=== PATIENT | female | born 1975 | race Caucasian/White ===

== ENCOUNTER 2017-04-23 21:20 | Emergency (ER) | payer BC ==
[2017-04-23 21:26] VITALS: BP 108/61
--- NOTE | 2017-04-23 22:25 | UC ---
Complaint Female HPI - HPI Summary HPI Summary: complaint of burning with urination increase in frequency and urgency denies abdominal pain, flank pain, back pain denies fever hasn't taken any medication for symptoms - History Of Current Complaint Chief Complaint: UCGU Stated Complaint: UTI TYPE SYMPTOMS Time Seen by Provider: 04/23/17 22:18 Hx Obtained From: Patient Hx Last Menstrual Period: 04/12/17 - Allergies/Home Medications Allergies/Adverse Reactions: Allergies Allergy/AdvReac Type Severity Reaction Status Date / Time Shellfish Allergy Allergy Severe Tingling, Verified 07/03/16 22:00 BURNING PMH/Surg Hx/FS Hx/Imm Hx Previously Healthy: Yes - Surgical History Surgical History: Yes Surgery Procedure, Year, and Place: , IVF 06/2016 - Family History Known Family History: Positive: Diabetes - Social History Occupation: Employed Full-time Lives: With Family Alcohol Use: None Substance Use Type: None Smoking Status (MU): Never Smoked Tobacco Review of Systems Constitutional: Negative Skin: Negative Eyes: Negative ENT: Negative Respiratory: Negative Cardiovascular: Negative Gastrointestinal: Negative Genitourinary: Dysuria Motor: Negative Neurovascular: Negative Musculoskeletal: Negative Neurological: Negative Psychological: Negative All Other Systems Reviewed And Are Negative: Yes Physical Exam Triage Information Reviewed: Yes Appearance: No Pain Distress, Well-Nourished Vital Signs: Initial Vital Signs Temp 98.4 F 04/23/17 21:21 Pulse 89 04/23/17 21:21 Resp 18 04/23/17 21:21 BP 108/61 04/23/17 21:21 Pulse Ox 100 04/23/17 21:21 Vital Signs Reviewed: Yes Eyes: Positive: Conjunctiva Clear ENT: Positive: Pharynx normal, TMs normal Neck: Positive: No Lymphadenopathy Respiratory: Positive: Lungs clear, Normal breath sounds, No respiratory distress, No accessory muscle use Cardiovascular: Positive: RRR, No Murmur, Pulses Normal Abdomen Description: Positive: Nontender, No Organomegaly, Soft. Negative: CVA Tenderness (R), CVA Tenderness (L), Distended, Guarding Bowel Sounds: Positive: Present Musculoskeletal: Positive: No Edema Neurological: Positive: Alert Psychological Exam: Normal Skin Exam: Normal Complaint Female Dx - Differential Dx/Diagnosis Differential Diagnosis/HQI/PQRI: Urinary Tract Infection Provider Diagnoses: UTI Discharge - Discharge Plan Condition: Stable Disposition: HOME Prescriptions: Nitrofurantoin Monohyd Macro [Macrobid] 100 mg PO BID #10 cap Phenazopyridine TAB* [Pyridium 100 mg TAB*] 100 mg PO TID #6 tab Patient Education Materials: Urinary Tract Infection in Women (ED) Referrals: Shannan Vegas MD [Primary Care Provider] - Additional Instructions: Please start antibiotic and pyridium as directed Increase fluids and rest Take acetaminophen or ibuprofen for fever or pain Please review your discharge instructions. If your symptoms do not improve please call your primary care provider or return to urgent care.
[2017-04-23] MEDS ORDERED: Nitrofurantoin Macrocrystals* 50 MG CAP PO ONE (22:27)
[2017-04-23] MEDS ORDERED: Phenazopyridine TAB* 100 MG PO ONE (22:27)
== END 2017-04-23 23:01 | disposition home or self-care (01) ==
LOC: UCEAST 21:20
DX: N39.0 Urinary tract infection, site not specified (principal)
CPT/HCPCS: 81003; 87077; 87086; 87186; 99212; A9270-GY; G0463

== ENCOUNTER 2017-12-03 07:50 | Day surgery (SDC) | payer BC, OTHER ==
[~2017-12-03 07:50] MED LIST: Buffered Lidocaine 0.9% SYRIN* 5 ML/SYR SYRINGE INTRADERM ONE; Dexamethasone IV* 4 MG/ML 1 ML (4 MG) IV SLOW PU ONE; Famotidine IV* 10 MG/ML 2 ML (20 mg) IV ONE
[2017-12-03] MEDS ORDERED: Ketorolac INJ* 30 MG/ML 1 ML VIAL IV PRN (08:30)
[2017-12-03] MEDS ORDERED: oxyCODONE/Acetamin 5/325 MG* TAB PO PRN (08:30)
[2017-12-03] MEDS ORDERED: fentaNYL* 50 MCG/ML 2 ML VIAL (100 MCG VIAL) IV PRN (08:30)
[2017-12-03] MEDS ORDERED: HYDROcodone/ACETAMIN 5-325 MG* 1 TAB PO PRN (08:30)
[2017-12-03] MEDS ORDERED: Naloxone* 0.4 MG/ML 1 ML VIAL IV PRN (08:30)
[2017-12-03] MEDS ORDERED: PROCHLORPERAZINE INJ 5 MG/ML 2 ML VIAL IV PRN (08:30)
[2017-12-03] MEDS ORDERED: Buffered Lidocaine 0.9% SYRIN* 5 ML/SYR SYRINGE ONE (08:46)
[2017-12-03] MEDS ORDERED: Dexamethasone IV* 4 MG/ML 1 ML (4 MG) ONE (08:46)
[2017-12-03] MEDS ORDERED: Famotidine IV* 10 MG/ML 2 ML (20 mg) ONE (08:46)
[2017-12-03] MEDS ORDERED: Misoprostol TAB* 200 MCG ONE (09:05)
[2017-12-03] MEDS ORDERED: Propofol* 500 MG/50 ML BTL ONE (09:08)
[2017-12-03] MEDS ORDERED: Lidocaine 2% PF * 5 ML VIAL ONE (09:08)
[2017-12-03] MEDS ORDERED: Midazolam* 1 MG/ML 2 ML VIAL (2 MG) ONE (09:08)
[2017-12-03] MEDS ORDERED: fentaNYL* 50 MCG/ML 2 ML VIAL (100 MCG VIAL) ONE (09:09)
[2017-12-03] MEDS ORDERED: Ondansetron INJ* 2 MG/ML VIAL ONE (09:43)
[2017-12-03] MEDS ORDERED: Lidocaine 1% INJ* 10 MG/ML 30 ML SDV ONE (09:51)
[2017-12-03 11:30] VITALS: BP 100/59
--- NOTE | 2017-12-04 15:41 | OP ---
DATE OF OPERATION: 12/03/17 - SDS DATE OF : 75 SURGEON: Irina Chaney MD FIELD OPERATIONS MANAGER: None. ANESTHESIA: General endotracheal with paracervical block. PRE-OP DIAGNOSIS: Missed 6 plus weeks. POST-OP DIAGNOSIS: Missed 6 plus weeks. OPERATIVE PROCEDURE: Dilation, evacuation, and curettage. ESTIMATED BLOOD LOSS: Less than 50 cc. URINE OUTPUT: 200 cc of clear yellow urine. FLUIDS: 600 cc of crystalloid. FINDINGS: Revealed intrauterine contents consistent with products of conception. Sent fresh for karyotyping to the lab. Normal uterine contour with curettage. No evidence of adhesions or scarring intrauterine. COMPLICATIONS: None apparent. DISPOSITION: Stable to recovery room. DESCRIPTION OF PROCEDURE: The patient was placed in dorsal lithotomy position. Legs were placed in candy cane stirrup. The perineum and vagina were prepped and draped in the sterile standard fashion. The patient was identified with universal protocol for correct position, patient, and procedure. Bladder was drained with self-cath for 200 cc of clear yellow urine. Self-cath removed. Sterile speculum was inserted. Cervix was visualized, grasped at the anterior lip with single-tooth tenaculum, dilated to #8 Hegar dilator. A curved 7-mm suction curette was placed for complete evacuation of the intrauterine contents. Sharp curettage was performed revealing no evidence of deviation with curettage. No evidence of adhesions appreciated with curetting. Single-tooth tenaculum was removed from the anterior lip of the cervix. Sterile speculum was removed. 600 mcg of Cytotec was placed intravaginally. The patient was returned to dorsal supine position and taken to the recovery room in stable condition. [id number]/[facility] #: [id number] MTDD
== END 2017-12-03 11:20 | disposition home or self-care (01) ==
LOC: OR 07:50
PROVIDERS: ATTEND Obstetrics & Gynecology
DX: O02.1 Missed abortion (principal); R00.2 Palpitations; G43.809 Other migraine, not intractable, without status migrainosus; Z31.438 Encounter for other genetic testing of female for procreative management
CPT/HCPCS: 88233; 88291; 88305; 88342; A9270-GY; J1100; J2250; J2405; J2704; J3010

== ENCOUNTER 2018-05-12 20:22 | Emergency (ER) | payer BC ==
[2018-05-12 20:46] VITALS: BP 107/59
[2018-05-12] MEDS ORDERED: Amoxicillin PO (*) 500 MG CAP PO ONE (21:01)
[2018-05-12] MEDS ORDERED: Phenazopyridine TAB* 100 MG PO ONE ×2 (21:01→21:03)
--- NOTE | 2018-05-12 21:14 | UC ---
Chelsea Pepper Jacob, scribed for Winifred Melara MD on 05/12/18 at 2057 . Complaint Female HPI - HPI Summary HPI Summary: Pt is a 42 y/o F w/ c/o dysuria alongside increased frequency of urination onset 1700 today. Pt denies any flank and pelvic pain, fever, chills. Pt states she is unsure of hematuria. Pt with some urgency. She denies current back pain but notes she had some last week that she thought was her usual back pain. Pt notes that she had some GI issues yesterday with urinary urgency but resolved until 1700 today. She had no diarrhea and was fine afterwardsNo fever, chills. No nausea. No vagina discharge, itching, odor. Pt's last UTI 1 year ago. . LNMP was 10 days ago. Pt is actively trying to get but is no longer taking fertility medications. She denies taking pain medication. Pt's medications reviewed this visit - History Of Current Complaint Chief Complaint: UCGU Stated Complaint: POSS UTI Time Seen by Provider: 05/12/18 20:30 Hx Obtained From: Patient Hx Last Menstrual Period: 04/26/2018 Onset/Duration: Lasting Hours - 1700 today Severity Currently: Mild Pain Intensity: 3 Aggravating Factor(s): Nothing Alleviating Factor(s): Nothing Associated Signs And Symptoms: Positive: Vaginal Discharge - additional moisture. Negative: Back Pain - Allergies/Home Medications Allergies/Adverse Reactions: Allergies Allergy/AdvReac Type Severity Reaction Status Date / Time shellfish derived Allergy Tingling Verified 05/12/18 20:39 Sulfa (Sulfonamide Allergy Dizziness Verified 05/12/18 20:39 Antibiotics) PMH/Surg Hx/FS Hx/Imm Hx Previously Healthy: Yes Other GI/ History: UTI Other History Of: Negative For: HIV - Surgical History Surgical History: Yes Surgery Procedure, Year, and Place: 2013 , IVF 06/2016, WISDOM TEETH. D&C November 2017 - Family History Known Family History: Positive: Diabetes - Social History Occupation: Employed Full-time Lives: With Family Alcohol Use: None Substance Use Type: None Smoking Status (MU): Never Smoked Tobacco Have You Smoked in the Last Year: No Review of Systems Constitutional: Other - NEGATIVE: fever, chills Gastrointestinal: Other - NEGATIVE: diarrhea, flank pain, pelvic pain Genitourinary: Dysuria, Frequency - increased frequency of urination, Other - UNSURE: hematuria Musculoskeletal: Other: - NEGATIVE: back pain All Other Systems Reviewed And Are Negative: Yes Physical Exam - Summary Physical Exam Summary: Vital Signs Reviewed: Yes A+Ox3, no distress Eyes: Conjunctiva Clear ENT: Hearing grossly normal neck: supple Respiratory: Positive: No respiratory distress, No accessory muscle use CTA throughout no w/r Cardiovascular: skin color reflect adequate perfusion RRR nl s1, s2 no m/r abd : soft + BS + suprapubic discomfort no guarding, no distended no CVA b/l Musculoskeletal Exam: GROSSMAN x 4 without difficulty Neurological: Positive: Alert, ambulatory without difficulty Psychological: Positive: Normal Response To Family Skin: Positive: no rash, no ecchymosis Triage Information Reviewed: Yes Vital Signs: Initial Vital Signs Temp 99.5 F 05/12/18 20:40 Pulse 77 05/12/18 20:40 Resp 18 05/12/18 20:40 BP 107/59 05/12/18 20:40 Pulse Ox 100 05/12/18 20:40 Complaint Female Dx - Course Course Of Treatment: Patient presents with urinary urgency and frequency. Patient with history of UTIs and states it feels similar. Patient without any nausea vomiting or back pain. Patient was of a pubic discomfort on exam. Patient vital signs stable. Patient with leuks and blood in urine. Patient is actively trying to Prednisol use amoxicillin for antibiotics. Recommend Tylenol not Motrin. Pyridium is class B the patient is interested in taking for discomfort. Recommend hydration. Return precautions. Patient aware of culture pending - Differential Dx/Diagnosis Provider Diagnoses: dysuria Discharge - Sign-Out/Discharge Documenting (check all that apply): Discharge/Admit/Transfer - Discharge Plan Condition: Stable Disposition: HOME Prescriptions: Amoxicillin PO (*) [Amoxicillin 500 MG CAP*] 500 mg PO Q12H #13 cap Phenazopyridine TAB* [Pyridium 100 mg TAB*] 100 mg PO Q8HR PRN #9 tab PRN Reason: burning with urination Patient Education Materials: Urinary Tract Infection in Women (ED) Referrals: Shannan Vegas MD [Primary Care Provider] - Additional Instructions: - stay well hydrated - drink plenty of non-alcoholic, non caffinated beverages - your urine will be further tested - if you require any changes to your treatment, we will contact you - this usually take 2 days - Contact your primary doctor to arrange a follow-up appointment next week. Contact your doctor or return with questions or concerns - Take your antibiotics exactly as prescribed until gone - Take pyridium as prescribed for discomfort. This will make your urine blaze orange - this is normal - Okay to take Tylenol every 6 hours as needed for pain. Take with food - Call your doctor or return with questions or concerns - Billing Disposition and Condition Condition: STABLE Disposition: Home The documentation as recorded by the Chelsea sethi Jacob accurately reflects the service I personally performed and the decisions made by me, Winifred Melara MD.
--- NOTE | 2018-05-14 19:26 | UC ---
- Progress Note Progress Note: urine culture - final no growth Nickj 05/14/2018 Discharge - Sign-Out/Discharge Documenting (check all that apply): Post-Discharge Follow Up - Discharge Plan Condition: Stable Disposition: HOME Prescriptions: Amoxicillin PO (*) [Amoxicillin 500 MG CAP*] 500 mg PO Q12H #13 cap Phenazopyridine TAB* [Pyridium 100 mg TAB*] 100 mg PO Q8HR PRN #9 tab PRN Reason: burning with urination Patient Education Materials: Urinary Tract Infection in Women (ED) Referrals: Shannan Vegas MD [Primary Care Provider] - Additional Instructions: - stay well hydrated - drink plenty of non-alcoholic, non caffinated beverages - your urine will be further tested - if you require any changes to your treatment, we will contact you - this usually take 2 days - Contact your primary doctor to arrange a follow-up appointment next week. Contact your doctor or return with questions or concerns - Take your antibiotics exactly as prescribed until gone - Take pyridium as prescribed for discomfort. This will make your urine blaze orange - this is normal - Okay to take Tylenol every 6 hours as needed for pain. Take with food - Call your doctor or return with questions or concerns - Billing Disposition and Condition Condition: STABLE Disposition: Home
== END 2018-05-12 21:20 | disposition home or self-care (01) ==
LOC: UCEAST 20:22
DX: R30.0 Dysuria (principal); R35.0 Frequency of micturition; Z88.2 Allergy status to sulfonamides; Z91.013 Allergy to seafood
CPT/HCPCS: 81003; 87086; 99213; A9270-GY; G0463

== ENCOUNTER 2018-07-05 08:36 | Emergency (ER) | payer BC ==
--- NOTE | 2018-07-05 08:41 | UC ---
Complaint Female HPI - HPI Summary HPI Summary: 42 yo female presents with urinary burning and frequency since last night. She tells me that she had intercourse on 07/01 and thinks this is why she developed a ?UTI. This is the second time she has had a UTI after intercourse this summer and is concerned as to why because she is urinating and cleaning immediately after intercourse. She is also trying to get . She was undergoing fertility treatments, but stopped these in February. Denies fever, chills, abdominal pain, n/v/d/c, flank pain, vaginal bleeding or discharge. - History Of Current Complaint Chief Complaint: UCGU Stated Complaint: URINARY COMPLAINT Time Seen by Provider: 07/05/18 08:41 Hx Obtained From: Patient Hx Last Menstrual Period: 04/26/2018 Onset/Duration: Sudden Onset Severity Initially: Mild Severity Currently: Mild Pain Intensity: 3 Pain Scale Used: 0-10 Numeric - Allergies/Home Medications Allergies/Adverse Reactions: Allergies Allergy/AdvReac Type Severity Reaction Status Date / Time shellfish derived Allergy Tingling Verified 07/05/18 08:43 Sulfa (Sulfonamide Allergy Dizziness Verified 07/05/18 08:43 Antibiotics) PMH/Surg Hx/FS Hx/Imm Hx - Additional Past Medical History Additional PMH: None Previously Healthy: Yes Other History Of: Negative For: HIV - Surgical History Surgical History: Yes Surgery Procedure, Year, and Place: 2013 , IVF 06/2016, WISDOM TEETH. D&C November 2017 - Family History Known Family History: Positive: Diabetes - Social History Occupation: Employed Full-time Lives: With Family Alcohol Use: None Substance Use Type: None Smoking Status (MU): Never Smoked Tobacco Have You Smoked in the Last Year: No Review of Systems Constitutional: Negative Respiratory: Negative Cardiovascular: Negative Genitourinary: Dysuria, Frequency, Urgency Neurovascular: Negative Neurological: Negative Psychological: Negative All Other Systems Reviewed And Are Negative: Yes Physical Exam - Summary Physical Exam Summary: GENERAL: NAD. WDWN. No pain distress. SKIN: No rashes, sores, lesions, or open wounds. NECK: Supple. Nontender. No lymphadenopathy. CHEST: CTAB. No r/r/w. No accessory muscle use. Breathing comfortably and in no distress. CV: RRR. Without m/r/g. Pulses intact. Cap refill <2seconds ABDOMEN: Soft. NTTP. No distention or guarding. No CVA tenderness. Bowel sounds present NEURO: Alert. CN II-XII grossly intact. PSYCH: Age appropriate behavior. Triage Information Reviewed: Yes Vital Signs: Vital Signs: Temp Pulse Resp BP Pulse Ox 97.5 F 85 18 102/58 100 07/05/18 08:40 07/05/18 08:40 07/05/18 08:40 07/05/18 08:40 07/05/18 08:40 Laboratory Tests 07/05/18 07/05/18 08:50 08:52 POC Urine Color Yellow POC Urine Clarity Slightly cloudy POC Urine pH 7.0 POC Ur Specif [place] <= 1.005 L POC Urine Protein Negative POC Ur Glucose (UA) Negative POC Urine Ketones Negative POC Urine Blood 3+ A POC Urine Nitrite Negative POC Urine Bilirubin Negative POC Urine Urobilinogen 0.2 POC U Leukocyte Esteras 2+ A POC Ur Test Negative Vital Signs Reviewed: Yes Complaint Female Dx - Course Course Of Treatment: UA with signs of infection. Urine preg negative. Will treat for UTI and call her with urine culture results. - Differential Dx/Diagnosis Provider Diagnoses: UTI Discharge - Sign-Out/Discharge Documenting (check all that apply): Patient Departure All imaging exams completed and their final reports reviewed: No Studies - Discharge Plan Condition: Stable Disposition: HOME Prescriptions: Amoxicillin PO (*) [Amoxicillin 500 MG CAP*] 500 mg PO Q12H #14 cap Patient Education Materials: Urinary Tract Infection in Women (DC) Referrals: Shannan Vegas MD [Primary Care Provider] - Additional Instructions: If you develop a fever, shortness of breath, chest pain, new or worsening symptoms - please call your PCP or go to the ED. - Billing Disposition and Condition Condition: STABLE Disposition: Home
[2018-07-05 08:43] VITALS: BP 102/58
== END 2018-07-05 09:00 | disposition home or self-care (01) ==
LOC: UCEAST 08:36
DX: N39.0 Urinary tract infection, site not specified (principal); Z88.2 Allergy status to sulfonamides; Z91.013 Allergy to seafood
CPT/HCPCS: 81003; 84702; 87086; 87088; 99212; G0463